=== PATIENT | male | born 1995 | race Caucasian/White ===

== ENCOUNTER 2022-03-17 17:27 | Day surgery (SDC) | payer SELFPAY ==
[2022-03-17] MEDS ORDERED: Ketorolac 30 MG/ML SDV IVPUSH ONE (19:02)
[2022-03-17] MEDS ORDERED: Ondansetron 4 MG/2 ML SDV IVPUSH ONE (19:02)
[2022-03-17] MEDS ORDERED: Sodium Chloride 0.9% 1,000 ML IV ONE (19:02)
[2022-03-17] MEDS ORDERED: Morphine 4 MG/ML Syringe IVPUSH ONE (19:07)
[2022-03-17 19:59] LABS: CARBON DIOXIDE,CO2 29.5 mmol/L (21.0-32.0); POTASSIUM,K 4.5 mmol/L (3.5-5.1)
[2022-03-17] MEDS ORDERED: Iopamidol 755 MG/ML 500 ML Multipack Bottle IVPUSH ONE (20:11)
[2022-03-17 20:25] LABS: CORONAVIRUS COVID-19 NAA NEGATIVE (NEGATIVE); INFLUENZA A NAA NEGATIVE (NEGATIVE); INFLUENZA B NAA NEGATIVE (NEGATIVE)
[2022-03-17] MEDS ORDERED: HYDROmorphone 1 MG/ML Syringe IVPUSH ONE (20:47)
[2022-03-17] MEDS ORDERED: cefTRIAXone 2 GM in Premix Bag 1 BAG IV ONE (21:24)
[2022-03-17] MEDS ORDERED: metroNIDAZOLE/Normal Saline 500 MG in Premix Bag 1 BAG IV ONE (21:24)
[2022-03-17] MEDS ORDERED: Bupivacaine 0.5% 30 ML SDV ONE (21:36)
[2022-03-17] MEDS ORDERED: fentaNYL 100 MCG/2 ML SDV ONE (21:38)
[2022-03-17] MEDS ORDERED: fentaNYL 250 MCG/5 ML SDV ONE (21:38)
[2022-03-17] MEDS ORDERED: Propofol 200 MG/20 ML SDV ONE (21:38)
[2022-03-17] MEDS ORDERED: Ropivacaine 0.5% 5 MG/ML 30 ML SDV ONE (21:45)
[2022-03-17] MEDS ORDERED: Famotidine 20 MG/2 ML SDV ONE (21:45)
[2022-03-17] MEDS ORDERED: Rocuronium Bromide 50 MG/5 ML Syringe ONE (23:03)
[2022-03-17] MEDS ORDERED: Sugammadex Sodium 200 MG/2 ML VIAL ONE (23:03)
[2022-03-17] MEDS ORDERED: Glycopyrrolate 0.2 MG/ML SDV ONE (23:03)
[2022-03-17] MEDS ORDERED: Ondansetron 4 MG/2 ML SDV ONE (23:03)
[2022-03-17] MEDS ORDERED: Dexamethasone 4 MG/ML 5 ML MDV ONE (23:03)
[2022-03-17] MEDS ORDERED: Ketorolac 30 MG/ML SDV ONE (23:03)
[2022-03-17] MEDS ORDERED: Sodium Chloride 0.9% 2.5 ML Syringe FLUSH PRN (23:22)
[2022-03-17] MEDS ORDERED: Sodium Chloride 0.9% 20 ML SDV IV PRN (23:22)
[2022-03-17] MEDS ORDERED: Sodium Chloride 0.9% 10 ML Syringe FLUSH PRN (23:22)
[2022-03-17] MEDS ORDERED: Acetaminophen/HYDROcodone 325-5 MG Tab PO PRN (23:22)
[2022-03-17] MEDS ORDERED: Ondansetron 4 MG/2 ML SDV IVPUSH PRN (23:24)
[2022-03-17] MEDS ORDERED: diphenhydrAMINE 50 MG/ML SDV IVPUSH PRN (23:24)
[2022-03-17] MEDS ORDERED: HYDROmorphone 1 MG/ML Syringe ONE (23:26)
[2022-03-18] MEDS: HYDROmorphone 2 MG/ML Syringe IVPUSH PRN ×2 (00:18→08:43)
[2022-03-18] MEDS: Ketorolac 30 MG/ML SDV IVPUSH SCH ×2 (06:21→11:11)
== END 2022-03-18 13:00 | disposition home or self-care (01) ==
LOC: MW.ED 17:27 → MW.MS 21:12 → MW.SDS 21:12
PROVIDERS: ATTEND Surgery
DX: K35.33 Acute appendicitis with perforation, localized peritonitis, and gangrene, with abscess (principal); Z88.0 Allergy status to penicillin; Z20.822 Contact with and (suspected) exposure to COVID-19
CPT/HCPCS: 0240U; 36415; 44970; 74177; 80053; 81003; 85025; 96361; 96365; 96375; 99285; J0131; J0696; J1100; J1170; J1885; J2270; J2405; J2704; J2795; J3010; J3490; J7030; Q9967; 00840; 64488